=== PATIENT | female | born 1960 | race African-American/Black ===

== ENCOUNTER 2019-08-24 07:38 | Emergency (ER) | payer BC ==
[~2019-08-24] VITALS: Ht 167.6 cm; Wt 72.0 kg
[2019-08-24] MEDS ORDERED: HYDR25SU18 RC (08:55)
[2019-08-24] MEDS ORDERED: SENN-121 PO (08:55)
[2019-08-24] MEDS ORDERED: TRAM50TA PO (08:55)
--- NOTE | 2019-08-24 08:56 | PHYS DOC ---
Past Medical History Past Medical History: No Pertinent History Past Surgical History: , Other Additional Past Surgical Histo: hemmorhoidectomy, x3 Smoking Status: Current Every Day Smoker Additional Information: 4-5 cigarettes daily Alcohol Use: Occasionally Drug Use: Marijuana (Occasional ) Adult General Chief Complaint Chief Complaint: RECTAL BLEED HPI HPI Patient is a 58 year old female who presents with rectal bleeding and pain. She states that for the last week she has been having rectal pain, especially during and after defecation. She says the pain can sometimes be sharp and stabbing and at other time dull and aching and rates the pain as 8/10. This morning she noticed some blood on the toilet paper after she wiped after her BM. She also no ticed some drops of blood in the toilet and some streaks of blood and mucus on her stool. She reports that her stool consistency had been soft and like "pancake batter" earlier this week and yesterday and today she had formed soft stools. She reports having 2-3 BMs per day. She says that she has felt like she has had to strain to pass stool this week although she denies any hard stools and feelings of constipation. She says that she has had to massage around her rectum a few times to pass stool. She also says that the pain has spread from around her rectum to her left inner thigh. She has tried ibuprofen, Aleve, and aspirin which have only helped the pain slightly. She has had hemorrhoids in the past and had hemorrhoidectomy. She has never had a colonoscopy. She denies fevers, chills, abdominal pain, or nausea and vomiting. Review of Systems Review of Systems Constitutional: Denies fever or chills Eyes: Denies redness or eye pain HENT: Denies nasal congestion or sore throat Respiratory: Denies cough or shortness of breath Cardiovascular: Denies chest pain or palpitations GI: Denies abdominal pain, nausea, or vomiting; Reports rectal pain and hematochezia : Denies dysuria or hematuria Musculoskeletal: Denies back pain or joint pain Integument: Denies rash or skin lesions Neurologic: Denies headache, focal weakness or sensory changes Complete systems were reviewed and found to be within normal limits, except as documented in this note. Family History Family History No pertinent family history. Current Medications Current Medications Current Medications Medications (Trade) Dose Ordered Sig/Destiny Start Time Stop Time Status Last Admin Dose Admin Acetaminophen (Tylenol) 500 mg 1X ONCE 08/24/19 09:00 08/24/19 09:12 DC 08/24/19 09:11 500 MG Tramadol HCl (Ultram) 50 mg 1X ONCE 08/24/19 09:00 08/24/19 09:12 DC 08/24/19 09:12 50 MG Allergies Allergies Allergies Coded Allergies Type Severity Reaction Last Updated Verified No Known Drug Allergies 08/24/19 No Physical Exam Physical Exam Constitutional: Well developed, well nourished, no acute distress, non-toxic appearance HENT: Normocephalic, atraumatic, oropharynx moist Eyes: EOMI, conjunctiva normal, no discharge Neck: Normal range of motion, no tenderness, supple Cardiovascular: Heart rate normal, regular rhythm Lungs & Thorax: Bilateral breath sounds clear to auscultation, no wheezing Abdomen/GI: Soft, no tenderness, no areas of induration around the rectal area, no thrombosed hemorrhoids, rectal exam performed with no areas of induration or internal hemorrhoids noted, no active bleeding noted Skin: Warm, dry, no erythema, no rash Extremities: ROM intact, no edema Neurologic: Alert and oriented X 3, normal motor function, normal sensory function, no focal deficits noted Psychologic: Affect normal, judgment normal Current Patient Data Vital Signs Vital Signs Date Time Temp Pulse Resp B/P (MAP) Pulse Ox O2 Delivery O2 Flow Rate FiO2 08/24/19 09:13 90 18 124/75 (91) 97 Room Air 08/24/19 08:13 98.3 98.3 EKG EKG [] Radiology/Procedures Radiology/Procedures [] Course & Med Decision Making Course & Med Decision Making Patient is a 58 year old female presenting to the ED with rectal pain that began about a week ago. She noted some blood on the toilet paper and some drops in the toilet this morning. She has tried aspirin, Aleve, and ibuprofen with only a small amount of relief. Tramadol and Acetaminophen given in the ED. Provided prescription for Tramadol, Pericolace, and Anusol suppository. Patient instruc myke to return if any worsening of symptoms. Patient stable for discharge with outpatient follow-up with PCP/GI. GI referral provided. Discussed findings and plan with patient, who acknowledges understanding and agreement. GI referral provided. Sherrie Disclaimer Sherrie Disclaimer This electronic medical record was generated, in whole or in part, using a voice recognition dictation system. Departure Departure Impression: Primary Impression: Rectal pain Additional Impression: Rectal bleeding Disposition: HOME, SELF-CARE Condition: STABLE Referrals: NO PCP (PCP) RON GRANGER MD Patient Instructions: Anal Fissure, Adult, [id number], Hemorrhoids, [id number], Rectal Bleeding, [id number] Scripts Tramadol Hcl (TRAMADOL HCL) 50 Mg Tablet 50 MG PO Q6HRS PRN for PAIN, #14 TAB Take each tablet with one (1) regular strength Tylenol 325mg. Prov: BENNETT JACOBS DO 08/24/19 Hydrocortisone Acetate (ANUSOL-HC) 25 Mg Supp.rect 1 SUPP RC BID for 7 Days, #14 SUPP 0 Refills Prov: BENNETT JACOBS DO 08/24/19 Sennosides/Docusate Sodium (Colace 2-in-1 Tablet) 1 Each Tablet 1 TAB PO QHS for 30 Days, #30 TAB 0 Refills Prov: BENNETT JACOBS DO 08/24/19 Problem Qualifiers BENNETT JACOBS DO Aug 24, 2019 08:56
[2019-08-24] MEDS ORDERED: traMADol 50 MG TABLET PO ONE (09:00)
[2019-08-24] MEDS ORDERED: ACETAMINOPHEN 500 MG TABLET PO ONE (09:00)
[2019-08-24 09:13] VITALS: BP 124/75
== END 2019-08-24 09:20 | disposition home or self-care (01) ==
LOC: ER 07:38
DX: K92.1 Melena (principal); K62.89 Other specified diseases of anus and rectum; F12.90 Cannabis use, unspecified, uncomplicated; F17.210 Nicotine dependence, cigarettes, uncomplicated; Z90.89 Acquired absence of other organs; Z98.890 Other specified postprocedural states; Z79.899 Other long term (current) drug therapy
CPT/HCPCS: 99283